=== PATIENT | female | born 2000 | race Caucasian/White ===

== ENCOUNTER 2020-11-06 12:59 | Emergency (ER) | payer OTHER ==
[2020-11-06 15:10] LABS: BHCG - Serum POSITIVE (NEGATIVE); Pregs Control Background? CLEAR/WHITE (CLR/WHITE); Pregs Control Bar Appear? YES (CONTROL BAR)
[2020-11-06 15:12] LABS: Bilirubin Neg (Negative); Blood, Urine Negative (Negative); Clarity Slightly Cloudy (Clear); Glucose, Urine (Dipstick) Normal (Negative); Ketone, Urine Negative (Negative); Leukocyte 25 (Negative); Nitrite Negative (Negative); Protein, Urine (Dipstick) Negative (Neg-Trace); Specific Gravity, Urine 1.015 (1.002-1.036); Urobilinogen Normal mg/dL (Less than 2)
[2020-11-06 15:30] LABS: #Basophils 0.1 10x3/uL (0.0-0.2); #Eosinphils 0.3 10x3/uL (0.0-0.5); #Monocytes 0.8 10x3/uL (0.0-1.1); #Neutrophils 6.3 10x3/uL (1.5-8.4); %Basophils 0.5 % (0.0-2.0); %Eosinophils 2.8 % (0.0-6.0); %Monocytes 8.4 % (0.0-10.0); Hemoglobin 13.8 g/dL (12.0-15.5); Mean Corpuscular HGB CONC 33.7 g/dL (32.0-36.0); Mean Corpuscular Hemoglobin 30.5 pg (27.0-33.0); Mean Corpuscular Volume 90.5 fl (81.6-98.3); Mean Platelet Volume 10.9 fl (7.4-10.4); Platelet Count 301 10x3/uL (150-450); RBC Distribution Width 12.4 % (11.5-14.5); Red Blood Cell (RBC) Count 4.53 10x6/uL (3.90-5.03); White Blood Cell (WBC) Count 9.4 10x3/uL (3.5-10.5)
[2020-11-06 15:34] LABS: RBC/HPF 0-3 HPF (0-3); WBC/HPF 0-3 HPF (0-3)
[2020-11-06 15:35] LABS: Bacteria/HPF Rare-Few HPF (None Seen)
== END 2020-11-06 16:05 | disposition home or self-care (01) ==
LOC: CSHERS 12:59
DX: O26.891 Other specified pregnancy related conditions, first trimester (principal); R10.31 Right lower quadrant pain; O99.331 Smoking (tobacco) complicating pregnancy, first trimester; F17.290 Nicotine dependence, other tobacco product, uncomplicated; Z3A.01 Less than 8 weeks gestation of pregnancy
CPT/HCPCS: 76856; 81003; 81015; 84702; 84703; 85025; 86900; 86901

== ENCOUNTER 2021-06-30 01:14 | Day surgery (SDC) | payer BC, OTHER ==
[2021-06-30 02:30] VITALS: BMI 31.1
[2021-06-30] MEDS ORDERED: hydrALAZINE 20 MG/ML VIAL SLOW IVP PRN (03:13)
== END 2021-06-30 04:15 | disposition home or self-care (01) ==
LOC: CSHLD/OP 01:14
PROVIDERS: ATTEND Obstetrics & Gynecology
DX: O47.1 False labor at or after 37 completed weeks of gestation (principal); Z3A.37 37 weeks gestation of pregnancy; Z87.891 Personal history of nicotine dependence
CPT/HCPCS: 99283

== ENCOUNTER 2021-07-02 14:06 | Day surgery (SDC) | payer BC, OTHER ==
[2021-07-02 15:03] VITALS: BMI 28.1
[2021-07-02] MEDS ORDERED: hydrALAZINE 20 MG/ML VIAL SLOW IVP PRN (15:03)
[2021-07-02 15:32] LABS: Fetal Membranes Rupture No Membranes Rupture (No Rupture)
== END 2021-07-02 16:19 | disposition home or self-care (01) ==
LOC: CSHLD/OP 14:06
PROVIDERS: ATTEND Advanced Practice Midwife
DX: O99.891 Other specified diseases and conditions complicating pregnancy (principal); N89.8 Other specified noninflammatory disorders of vagina; O99.820 Streptococcus B carrier state complicating pregnancy; Z3A.37 37 weeks gestation of pregnancy; Z87.891 Personal history of nicotine dependence
CPT/HCPCS: 84112; 99283

== ENCOUNTER 2021-07-05 23:29 | Day surgery (SDC) | payer BC, OTHER ==
[2021-07-06] MEDS ORDERED: hydrALAZINE 20 MG/ML VIAL SLOW IVP PRN (03:41)
== END 2021-07-06 04:08 | disposition home or self-care (01) ==
LOC: CSHLD/OP 23:29
PROVIDERS: ATTEND Obstetrics & Gynecology
DX: O47.1 False labor at or after 37 completed weeks of gestation (principal); O99.333 Smoking (tobacco) complicating pregnancy, third trimester; F17.290 Nicotine dependence, other tobacco product, uncomplicated; Z3A.39 39 weeks gestation of pregnancy
CPT/HCPCS: 99282

== ENCOUNTER 2021-07-09 08:28 | Outpatient (CLI) | payer BC, OTHER ==
[2021-07-09 21:55] LABS: SARS-CoV-2 PCR by NAA Not Detected (NotDetected)
== END 2021-07-09 08:29 | disposition home or self-care (01) ==
LOC: CSHLAB 08:28
PROVIDERS: ATTEND Advanced Practice Midwife
DX: Z20.822 Contact with and (suspected) exposure to COVID-19 (principal)
CPT/HCPCS: U0003; U0005

== ENCOUNTER 2021-07-12 02:09 | Inpatient (IN) | payer BC, OTHER ==
[2021-07-12] MEDS ORDERED: Ondansetron PF 4 MG/2 ML Vial IVP PRN ×2 (03:13→09:44)
[2021-07-12] MEDS ORDERED: hydrALAZINE 20 MG/ML VIAL SLOW IVP PRN ×2 (03:13→14:51)
[2021-07-12] MEDS ORDERED: Ibuprofen 800 MG TAB PO PRN (03:13)
[2021-07-12] MEDS ORDERED: Lidocaine 1% (PF) 30 ML VIAL SC PRN (03:13)
[2021-07-12] MEDS ORDERED: Promethazine HCl 25 MG/ML VIAL IM PRN ×2 (03:13→09:44)
[2021-07-12] MEDS ORDERED: Misoprostol 200 MCG TAB PR PRN (03:13)
[2021-07-12] MEDS ORDERED: Methylergonovine 0.2 MG/ML VIAL IM PRN (03:13)
[2021-07-12] MEDS ORDERED: HYDROcodone/Acetaminophen 5/325 mg Tablet PO PRN ×4 (03:13→14:51)
[2021-07-12] MEDS ORDERED: NS w/ Oxytocin 30 units 500 ML IV SCH ×3 (03:30→14:51)
[2021-07-12 03:49] LABS: Hemoglobin 11.8 g/dL (12.0-15.5); Mean Corpuscular HGB CONC 33.7 g/dL (32.0-36.0); Mean Corpuscular Hemoglobin 30.4 pg (27.0-33.0); Mean Corpuscular Volume 90.2 fl (81.6-98.3); Mean Platelet Volume 10.7 fl (7.4-10.4); Platelet Count 249 10x3/uL (150-450); RBC Distribution Width 12.4 % (11.5-14.5); Red Blood Cell (RBC) Count 3.88 10x6/uL (3.90-5.03); White Blood Cell (WBC) Count 12.4 10x3/uL (3.5-10.5)
[2021-07-12 04:21] LABS: Hep B Surf Ag Non-Reactive S/CO (NonReactive); Syphilis Antibody Nonreactive (Nonreactive); Syphilis Antibody Index 0.09 S/CO (<1.00 Non-Reactive)
[2021-07-12 04:43] VITALS: BMI 32.3
[2021-07-12] MEDS ORDERED: NS w/ Oxytocin 30 units 500 ML ONE ×2 (05:08→11:20)
[2021-07-12] MEDS ORDERED: Butorphanol Tartrate 1 MG/ML VIAL ONE ×2 (05:40→08:06)
[2021-07-12] MEDS: Butorphanol Tartrate 1 MG/ML VIAL SLOW IVP PRN ×2 (05:41→08:16)
[2021-07-12] MEDS ORDERED: Bupivacaine PF 0.5% 30 ML VIAL ONE (07:00)
[2021-07-12] MEDS ORDERED: Fentanyl 2 mcg/Bup 0.1% Cadd 100 ML ONE (09:09)
[2021-07-12] MEDS ORDERED: diphenhydrAMINE 50 MG/ML VIAL IVP PRN (09:44)
[2021-07-12] MEDS ORDERED: Hydrocerin (Eucerin) Cream 120 gm Jar TOP PRN (09:44)
[2021-07-12] MEDS ORDERED: Acetaminophen 325 MG TAB PO PRN (09:44)
[2021-07-12] MEDS ORDERED: Naloxone HCl 0.4 mg/ml Vial IVP PRN ×2 (09:44)
[2021-07-12] MEDS ORDERED: Lactated Ringer's 500 ML IV PRN (09:44)
[2021-07-12] MEDS ORDERED: ePHEDrine Sulfate 50 MG/10 ML VIAL SLOW IVP PRN (09:44)
[2021-07-12] MEDS ORDERED: Communication Order-Pharmacy FS SCH (09:45)
[2021-07-12] MEDS ORDERED: Fentanyl 2 mcg/Bupivacaine 0.1% Cassette 100 ML EPIDURAL SCH (09:45)
[2021-07-12 11:13] LABS: pH (Cord, venous) 7.263 (7.250-7.350)
[2021-07-12] MEDS: Lactated Ringer's 1,000 ML IV SCH ×2 (13:34→13:35)
[2021-07-12] MEDS ORDERED: Lanolin Ointment 7 GM TUBE TOP PRN (14:51)
[2021-07-12] MEDS ORDERED: Bisacodyl 10 MG SUPP PR PRN (14:51)
[2021-07-12] MEDS ORDERED: Misoprostol 200 MCG TAB VAG PRN (14:51)
[2021-07-12] MEDS ORDERED: Milk Of Magnesia 30 ML UDCUP PO PRN (14:51)
[2021-07-12] MEDS ORDERED: Benzocaine-Menthol 82.5 ML CAN TOP PRN (14:51)
[2021-07-12] MEDS ORDERED: Boostrix 0.5 ML (Tdap) VIAL IM ONE (14:51)
[2021-07-12] MEDS: Ferrous Sulfate 325 MG TAB PO SCH (15:20)
[2021-07-12] MEDS: Ibuprofen 800 MG TAB PO SCH (19:22)
[2021-07-12] MEDS: Docusate 100 MG CAP PO SCH (19:22)
[2021-07-12] MEDS ORDERED: Ibuprofen 800 MG TAB ONE (19:23)
[2021-07-13] MEDS: Ibuprofen 800 MG TAB PO SCH ×3 (04:01→21:18)
[2021-07-13] MEDS: Ferrous Sulfate 325 MG TAB PO SCH ×2 (08:01→18:03)
[2021-07-13] MEDS: Prenatal Vitamin 1 TAB PO SCH (08:52)
[2021-07-13] MEDS: Docusate 100 MG CAP PO SCH ×2 (08:52→21:18)
[2021-07-14] MEDS: Ibuprofen 800 MG TAB PO SCH ×2 (05:57→13:28)
[2021-07-14] MEDS: Ferrous Sulfate 325 MG TAB PO SCH ×2 (08:10→14:47)
[2021-07-14] MEDS: Prenatal Vitamin 1 TAB PO SCH (08:19)
[2021-07-14] MEDS: Docusate 100 MG CAP PO SCH (08:19)
[2021-07-14 08:47] VITALS: BP 134/83; TEMP 98.5
== END 2021-07-14 16:12 | disposition home or self-care (01) | DRG 807 ==
LOC: CSHLD 02:09 → CSHPED 13:45
PROVIDERS: ADMIT Obstetrics & Gynecology; ATTEND Obstetrics & Gynecology
PROC: 10D07Z6 Extraction of Products of Conception, Vacuum, Via Natural or Artificial Opening (ICD-10-PCS; principal; 2021-07-12)
PROC: 0UQMXZZ Repair Vulva, External Approach (ICD-10-PCS; 2021-07-12)
DX: O76 Abnormality in fetal heart rate and rhythm complicating labor and delivery (principal); Z37.0 Single live birth; Z3A.39 39 weeks gestation of pregnancy; O71.82 Other specified trauma to perineum and vulva; Z20.822 Contact with and (suspected) exposure to COVID-19; Z90.89 Acquired absence of other organs; Z87.891 Personal history of nicotine dependence
CPT/HCPCS: 51701; 82805; 85027; 86780; 86850; 86900; 86901; 87340; J0595; J2590; S0020; U0003; U0005

== ENCOUNTER 2024-03-22 10:30 | Outpatient (CLI) | payer MEDICAID | END 2024-03-22 10:31 | disposition home or self-care (01) | LOC: CSHULT 10:30 | PROVIDERS: ATTEND Advanced Practice Midwife | DX: Z34.92 Encounter for supervision of normal pregnancy, unspecified, second trimester (principal); Z3A.20 20 weeks gestation of pregnancy | CPT/HCPCS: 76805 ==

== ENCOUNTER 2024-07-08 20:45 | Inpatient (IN) | payer OTHER ==
[2024-07-08 21:08] VITALS: BMI 32.4
[2024-07-08] MEDS ORDERED: hydrALAZINE 20 MG/ML VIAL SLOW IVP PRN ×2 (21:42→21:43)
[2024-07-08] MEDS ORDERED: Tranexamic Acid 1,000 MG/10 ML VIAL IVP PRN (21:43)
[2024-07-08] MEDS ORDERED: Misoprostol 200 MCG TAB PR PRN (21:43)
[2024-07-08] MEDS ORDERED: Diphenoxylate HCl/Atropine Tablet PO PRN (21:43)
[2024-07-08] MEDS ORDERED: Carboprost 250 MCG/ML AMP IM PRN (21:43)
[2024-07-08] MEDS ORDERED: Promethazine HCl 25 MG/ML VIAL IM PRN (21:43)
[2024-07-08] MEDS ORDERED: Lidocaine 1% (PF) 30 ML VIAL SC PRN (21:43)
[2024-07-08] MEDS ORDERED: Methylergonovine 0.2 MG/ML VIAL IM PRN (21:43)
[2024-07-08] MEDS ORDERED: Oxytocin 30 units/NS 500 ML 500 ML IV SCH ×2 (21:45)
[2024-07-08] MEDS ORDERED: Misoprostol 100 MCG TAB VAG SCH (21:45)
[2024-07-08 22:14] LABS: Hematocrit 35.9 % (34.9-44.5); Hemoglobin 12.7 g/dL (12.0-15.5); Mean Corpuscular HGB CONC 35.4 g/dL (32.0-36.0); Mean Corpuscular Volume 87.6 fL (81.6-98.3); Mean Platelet Volume 10.7 fL (7.4-10.4); Platelet Count 323 10x3/uL (150-450); RBC Distribution Width 12.6 % (11.5-14.5); White Blood Cell (WBC) Count 11.75 10x3/uL (3.5-10.5)
[2024-07-08] MEDS ORDERED: Penicillin G 2.5 MILL.units 2.5 MILL.UNITS in Premix 1 BAG IVPB SCH (22:15)
[2024-07-08 22:25] LABS: HBsAg Index 0.43 S/CO (0-0.99); Hep B Surf Ag - L&D Non-Reactive S/CO (NonReactive)
[2024-07-08] MEDS: Lactated Ringer's 1,000 ML IV SCH (22:25)
[2024-07-08] MEDS: Penicillin G Potassium 5 MILL.UNITS in Sodium Chloride 0.9% 100 ML IVPB SCH (22:25)
[2024-07-08 22:27] LABS: Syphilis Antibody Nonreactive (Nonreactive); Syphilis Antibody Index 0.09 S/CO (<1.00 Non-Reactive)
[2024-07-08] MEDS: Acetaminophen 500 MG TAB PO PRN (22:29)
[2024-07-08 23:42] LABS: HIV (1/2) Antibody/Antigen Non-Reactive (NonReactive)
[2024-07-09] MEDS: Oxytocin 30 units/NS 500 ML 500 ML IV SCH (00:45)
[2024-07-09] MEDS: fentaNYL/Ropivacaine Epidural 100 ML ONE (01:19)
[2024-07-09] MEDS ORDERED: Naloxone HCl 0.4 mg/ml Vial IVP PRN ×2 (01:52)
[2024-07-09] MEDS ORDERED: Ondansetron PF 4 MG/2 ML Vial IVP PRN ×2 (01:52→04:56)
[2024-07-09] MEDS ORDERED: Moisturizing Cream (Eucerin) 113 GM JAR TOP PRN (01:52)
[2024-07-09] MEDS ORDERED: Promethazine HCl 25 MG/ML VIAL IM PRN (01:52)
[2024-07-09] MEDS ORDERED: Lactated Ringer's 500 ML IV PRN (01:52)
[2024-07-09] MEDS ORDERED: diphenhydrAMINE 50 MG/ML VIAL IVP PRN (01:52)
[2024-07-09] MEDS ORDERED: Communication Order-Pharmacy FS SCH (02:00)
[2024-07-09] MEDS ORDERED: fentaNYL 2 mcg/Ropivacaine 0.2% Epidural 100 ML CADD EPIDURAL SCH (02:00)
[2024-07-09] MEDS: Penicillin G 2.5 MILL.units 2.5 MILL.UNITS in Premix 1 BAG IVPB SCH (02:10)
[2024-07-09] MEDS: Ondansetron PF 4 MG/2 ML Vial IVP PRN (03:25)
[2024-07-09] MEDS: ePHEDrine Sulfate 50 MG/10 ML VIAL SLOW IVP PRN (03:28)
[2024-07-09] MEDS ORDERED: hydrALAZINE 20 MG/ML VIAL SLOW IVP PRN (04:56)
[2024-07-09] MEDS ORDERED: Milk Of Magnesia 30 ML UDCUP PO PRN (04:56)
[2024-07-09] MEDS ORDERED: Bisacodyl 10 MG SUPP PR PRN (04:56)
[2024-07-09] MEDS ORDERED: Lanolin Ointment 7 GM TUBE TOP PRN (04:56)
[2024-07-09] MEDS: Acetaminophen 325 MG TAB PO PRN (05:18)
[2024-07-09] MEDS: Ibuprofen 800 MG TAB PO PRN (05:18)
[2024-07-09] MEDS: Terbutaline Sulfate 1 MG/ML VIAL SC SCH (08:53)
[2024-07-09] MEDS: Ibuprofen 800 MG TAB PO SCH (08:54)
[2024-07-09] MEDS: Ferrous Sulfate 325 MG TAB PO SCH (08:55)
[2024-07-09] MEDS ORDERED: ePHEDrine Sulfate 50 MG/10 ML VIAL ONE (17:00)
[2024-07-09] MEDS ORDERED: Bupivacaine/Epinephrine 0.25% 30 ML VIAL ONE (17:00)
[2024-07-09] MEDS ORDERED: Terbutaline Sulfate 1 MG/ML VIAL ONE (17:00)
[2024-07-09] MEDS: Docusate 100 MG CAP PO SCH (17:38)
[2024-07-10 05:31] LABS: Hematocrit 36.4 % (34.9-44.5); Hemoglobin 12.5 g/dL (12.0-15.5)
[2024-07-11 07:25] VITALS: BP 144/96; TEMP 98.2
[2024-07-11] MEDS: Measles/Mumps/Rubella 10 MCG/0.5 ML VIAL SC ONE (08:19)
[2024-07-11] MEDS ORDERED: Measles/Mumps/Rubella 10 MCG/0.5 ML VIAL SC ONE (09:03)
== END 2024-07-11 09:40 | disposition home or self-care (01) | DRG 807 ==
LOC: CSHLD/OP 20:45 → CSHLD 21:26 → CSHPP 07-09 09:13
PROVIDERS: ADMIT Family Medicine; ATTEND Family Medicine
PROC: 10E0XZZ Delivery of Products of Conception, External Approach (ICD-10-PCS; principal; 2024-07-09)
DX: O42.013 Preterm premature rupture of membranes, onset of labor within 24 hours of rupture, third trimester (principal); Z37.0 Single live birth; Z3A.36 36 weeks gestation of pregnancy; O99.344 Other mental disorders complicating childbirth; F32.A Depression, unspecified; Z90.89 Acquired absence of other organs; O76 Abnormality in fetal heart rate and rhythm complicating labor and delivery; O35.03X1 Maternal care for (suspected) central nervous system malformation or damage in fetus, choroid plexus cysts, fetus 1
CPT/HCPCS: 36415; 51702; 85014; 85018; 86780; 86850; 86900; 86901; 87340; 87389; 88307; 99285; J2405; J2540; J2590; J3105; J7120